=== PATIENT | female | born 1965 | race Caucasian/White ===

== ENCOUNTER 2016-12-25 06:45 | Emergency (ER) | payer OTHER ==
[~2016-12-25] VITALS: Ht 157.5 cm; Wt 68.0 kg
[~2016-12-25 06:45] MED LIST: METF1000 PO
[2016-12-25 06:51] VITALS: BP 133/80
--- NOTE | 2016-12-25 06:56 | NUR ---
PT TAKEN TO BED 7
--- NOTE | 2016-12-25 07:02 | NUR ---
51 Y/O F W/C/O L SWELLING, REDNESS AND PAIN TO L EYE. DENIES ANY DISCHARGE, FEVER OR CHILLS. NO S/S OF DISTRESS NOTED AT THE MOMENT.
--- NOTE | 2016-12-25 07:08 | NUR ---
Pt report given to STEPHANIE. Transfer of care at this time.
--- NOTE | 2016-12-25 07:45 | NUR ---
Dr. Goldsmith evaluating patient at bedside.
[2016-12-25] MEDS ORDERED: INSULIN HUMAN REGULAR 100 UNITS/ML 10 ML VIAL SUBQ ONE ×2 (08:10→09:55)
--- NOTE | 2016-12-25 08:48 | NUR ---
PT RESTING COMFORTABLY ON BED, NO C/O PAIN/HEADACHE OR DIZZINESS AT THIS TIME, WILL REPEAT ACCU CHECK POST INSULIN MEDICATION, WILL CONTINUE TO MONITOR
--- NOTE | 2016-12-25 09:10 | NUR ---
PER DR DURAN'S ORDER 10 UNITS OF REGULAR INSULIN GIVEN SUBQ LEFT MID ABDOMEN
[2016-12-25 10:19] VITALS: BP 144/86
--- NOTE | 2016-12-25 10:19 | NUR ---
Patient discharged with v/s stable. Written and verbal after care instructions given and explained. Patient alert, oriented and verbalized understanding of instructions. Ambulatory with steady gait. All questions addressed prior to discharge. ID band removed. Patient advised to follow up with PMD. Rx of CORTISPORIN OPHTHALMIC SUSPENSION given. Patient educated on indication of medication including possible reaction and side effects. Opportunity to ask questions provided and answered.
== END 2016-12-25 10:19 | disposition home or self-care (01) ==
LOC: MED 06:45
DX: H10.9 Unspecified conjunctivitis (principal); E11.9 Type 2 diabetes mellitus without complications
CPT/HCPCS: 82948; 96372; 99284; J1815

== ENCOUNTER 2017-05-04 12:10 | Outpatient (CLI) | payer OTHER ==
[2017-05-04 13:10] LABS: BASOPHILS # (AUTO) 0.4 K/uL (0.00-0.22); BASOPHILS % (AUTO) 3.5 % (0.0-2.0); EOSINOPHILS # (AUTO) 0.3 K/uL (0-0.4); EOSINOPHILS % (AUTO) 3.2 % (0.0-4.0); HEMATOCRIT 43.5 % (36-48); HEMOGLOBIN 14.3 g/dL (12.0-16.0); LYMPHOCYTES # (AUTO) 3.4 K/uL (2.5-16.5); LYMPHOCYTES % (AUTO) 31.8 % (20.5-51.1); MEAN CORPUSCULAR HEMOGLOBIN 28 pg (27-31); MEAN CORPUSCULAR HGB CONC 33 g/dL (33-37); MEAN CORPUSCULAR VOLUME 84 fL (80-94); MONOCYTES # (AUTO) 0.5 K/uL (0.8-1.0); MONOCYTES % (AUTO) 5.1 % (1.7-9.3); NEUTROPHILS # (AUTO) 6.1 K/uL (1.8-7.7); NEUTROPHILS % (AUTO) 56.4 % (42.2-75.2); PLATELET COUNT (AUTO) 339 K/uL (140-450); RED BLOOD CELL COUNT(AUTO) 5.16 MIL/uL (4.20-5.40); RED CELL DISTRIBUTION WIDTH 12.6 % (11.6-13.7); WHITE BLOOD COUNT (AUTO) 10.7 K/uL (4.8-10.8)
[2017-05-04 13:36] LABS: ALBUMIN 3.7 g/dL (3.4-5.0); ANION GAP 9.1 (8-16); CHOL/HDL RATIO 3.7 (1-4.5); CREATININE 0.5 mg/dL (0.6-1.3); POTASSIUM 4.1 mmol/L (3.5-5.1); TOTAL BILIRUBIN 0.5 mg/dL (0.0-1.0)
[2017-05-05 15:48] LABS: MICROALBUMIN, UR RANDOM 76.4 ug/mL (Not Estab.)
== END 2017-05-04 22:12 | disposition home or self-care (01) ==
LOC: MLB 12:10
PROVIDERS: ATTEND Family Medicine
DX: E11.9 Type 2 diabetes mellitus without complications (principal)
CPT/HCPCS: 36415; 80053; 82043; 83036; 85025

== ENCOUNTER 2017-05-27 13:09 | Outpatient (CLI) | payer OTHER | END 2017-05-27 19:22 | disposition home or self-care (01) | LOC: MRD 13:09 | DX: S92.422A Displaced fracture of distal phalanx of left great toe, initial encounter for closed fracture (principal); X58.XXXA Exposure to other specified factors, initial encounter; Y93.89 Activity, other specified; Y92.89 Other specified places as the place of occurrence of the external cause; Y99.8 Other external cause status | CPT/HCPCS: 73630 ==

== ENCOUNTER 2017-09-06 08:14 | Outpatient (CLI) | payer OTHER | END 2017-09-06 20:03 | disposition home or self-care (01) | LOC: MRD 08:14 | PROVIDERS: ATTEND Family Medicine | DX: M79.675 Pain in left toe(s) (principal) | CPT/HCPCS: 73630 ==

== ENCOUNTER 2020-11-25 04:59 | Emergency (ER) | payer BC, OTHER ==
[~2020-11-25] VITALS: Ht 157.5 cm; Wt 65.3 kg
[2020-11-25 05:05] VITALS: BP 113/75
--- NOTE | 2020-11-25 05:05 | NUR ---
to bed ambulatory
--- NOTE | 2020-11-25 05:25 | NUR ---
ERMD AT BEDSIDE.
--- NOTE | 2020-11-25 05:25 | NUR ---
SEE PATIENT ASSESSMENT FOR FURTHER PATIENT INFORMATION.
--- NOTE | 2020-11-25 05:27 | NUR ---
ERMD AT BEDSIDE FOR MEDICAL EVALUATION.
[2020-11-25] MEDS: MORPHINE SULFATE 4 MG/ML SYR IM ONE (05:38)
--- NOTE | 2020-11-25 05:47 | NUR ---
ERMD AT BEDSIDE FOR CONTINUATION OF PAIN.
[2020-11-25] MEDS ORDERED: IBUP-2213 PO (05:58)
[2020-11-25] MEDS ORDERED: ACET-8386 PO (05:58)
--- NOTE | 2020-11-25 06:05 | NUR ---
Patient discharged with v/s stable. Written and verbal after care instructions given and explained. Patient alert, oriented and verbalized understanding of instructions. Ambulatory with steady gait. All questions addressed prior to discharge. ID band removed. Patient advised to follow up with PMD. Rx of IBUPROFEN, NORCO given. Patient educated on indication of medication including possible reaction and side effects. Opportunity to ask questions provided and answered.
== END 2020-11-25 06:05 | disposition home or self-care (01) ==
LOC: MED 04:59
DX: M54.5 Low back pain (principal); E11.9 Type 2 diabetes mellitus without complications; I10 Essential (primary) hypertension; Z98.890 Other specified postprocedural states; Z79.84 Long term (current) use of oral hypoglycemic drugs
CPT/HCPCS: 96372; 99283; J2270

== ENCOUNTER 2024-03-03 13:48 | Emergency (ER) | payer BC, OTHER ==
[~2024-03-03] VITALS: Ht 144.8 cm; Wt 62.6 kg
[~2024-03-03 13:48] MED LIST changes: +ACET-8905 PO; +IBUP-2213 PO; +METF-1274 PO; -METF1000 PO
[2024-03-03 14:10] VITALS: BP 135/64; PULSE 81; RESP 18; TEMP 98.8; O2SAT 92
[2024-03-03 14:39] VITALS: O2SAT 91
[2024-03-03 15:08] VITALS: TEMP 98.1
[2024-03-03 15:37] LABS: APPEARANCE,URINE CLEAR (CLEAR); BILIRUBIN,URINE NEGATIVE (NEGATIVE); BLOOD, URINE NEGATIVE (NEGATIVE); COLOR,URINE YELLOW (YELLOW); LEUKOCYTE ESTERASE ,URINE TRACE (NEGATIVE); NITRITE, URINE NEGATIVE (NEGATIVE); PROTEIN,URINE 2+ (NEGATIVE); UGLUCOSE 2+ (NEGATIVE)
[2024-03-03 15:45] LABS: FLU B ANTIGEN NEGATIVE (NEGATIVE)
[2024-03-03 15:46] LABS: FLU A ANTIGEN POSITIVE (NEGATIVE)
[2024-03-03 15:47] LABS: BACTERIA,URINE FEW /HPF (None Seen); RBC,URINE 0-5 /HPF (0-5); SQUAMOUS EPITHELIAL CELL,UR 0-3 (FEW) /LPF (0-3 (FEW)); WBC,URINE 0-5 /HPF (0-5)
[2024-03-03 16:32] LABS: BASOPHILS % (AUTO) 0.5 % (0.0-2.0); EOSINOPHILS # (AUTO) 0.2 K/uL (0-0.4); EOSINOPHILS % (AUTO) 3.9 % (0.0-4.0); HEMATOCRIT 38.5 % (36-48); HEMOGLOBIN 12.3 g/dL (12.0-16.0); LYMPHOCYTES # (AUTO) 1.7 K/uL (2.5-16.5); LYMPHOCYTES % (AUTO) 33.7 % (20.5-51.1); MEAN CORPUSCULAR HEMOGLOBIN 27 pg (27-31); MEAN CORPUSCULAR HGB CONC 32 g/dL (33-37); MEAN CORPUSCULAR VOLUME 83.5 fL (80-94); MONOCYTES # (AUTO) 0.6 K/uL (0.8-1.0); MONOCYTES % (AUTO) 11.8 % (1.7-9.3); NEUTROPHILS # (AUTO) 2.6 K/uL (1.8-7.7); NEUTROPHILS % (AUTO) 50.1 % (42.2-75.2); PLATELET COUNT (AUTO) 244 K/uL (140-450); RED BLOOD CELL COUNT(AUTO) 4.62 MIL/uL (4.20-5.40); RED CELL DISTRIBUTION WIDTH 14.5 % (11.6-13.7); WHITE BLOOD COUNT (AUTO) 5.2 K/uL (4.8-10.8)
[2024-03-03] MEDS: ALBUTEROL 0.083% 2.5 MG/3 ML NEBU INH ONE (16:39)
[2024-03-03 16:40] VITALS: PULSE 67; RESP 18; O2SAT 99
[2024-03-03 16:48] LABS: ANION GAP 11.1 (8-16); CALCIUM 8.4 mg/dL (8.5-10.1); CARBON DIOXIDE 30.1 mmol/L (21-32); CREATININE 0.6 mg/dL (0.6-1.3); POTASSIUM 4.2 mmol/L (3.5-5.1)
[2024-03-03] MEDS ORDERED: IBUP-2213 PO (17:39)
[2024-03-03] MEDS ORDERED: ALBU0.0912 IH (17:39)
[2024-03-03] MEDS ORDERED: GUAI237L61 PO (17:39)
[2024-03-03 17:50] VITALS: BP 133/53; PULSE 82; RESP 18; O2SAT 96
== END 2024-03-03 17:57 | disposition home or self-care (01) ==
LOC: MED 13:48
DX: J10.1 Influenza due to other identified influenza virus with other respiratory manifestations (principal); E11.9 Type 2 diabetes mellitus without complications; I10 Essential (primary) hypertension; Z20.822 Contact with and (suspected) exposure to COVID-19; Z79.84 Long term (current) use of oral hypoglycemic drugs; Z79.1 Long term (current) use of non-steroidal anti-inflammatories (NSAID); Z79.899 Other long term (current) drug therapy
CPT/HCPCS: 36415; 71045; 80048; 81001; 84484; 85025; 87426; 87804; 93005; 94640; 99285; J7613; Q0092